=== PATIENT | female | born 1960 | race Caucasian/White ===

== ENCOUNTER 2024-12-01 15:14 | Emergency (ER) | payer OTHER ==
[~2024-12-01] VITALS: Ht 157.5 cm; Wt 59.0 kg
[2024-12-01 15:16] VITALS: O2SAT 99
[2024-12-01] MEDS: METOCLOPRAMIDE HCL 10MG TABLET PO ONE (21:05)
[2024-12-01] MEDS: ACETAMINOPHEN 500MG TABLET PO ONE (21:06)
[2024-12-01] MEDS ORDERED: NAPR-1176 MT (22:25)
[2024-12-01 23:06] VITALS: BP 114/50; PULSE 58; RESP 18; TEMP 36.7; O2SAT 99
== END 2024-12-01 23:06 | disposition home or self-care (01) ==
LOC: ER 15:14
DX: S09.90XA Unspecified injury of head, initial encounter (principal); Z79.1 Long term (current) use of non-steroidal anti-inflammatories (NSAID); Z79.899 Other long term (current) drug therapy; W22.8XXA Striking against or struck by other objects, initial encounter; Y93.89 Activity, other specified; Y92.89 Other specified places as the place of occurrence of the external cause; Y99.8 Other external cause status
CPT/HCPCS: 99284; 70450; J8597